=== PATIENT | female | born 2000 | race Caucasian/White ===

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

== ENCOUNTER → 2024-11-09 | Outpatient (REF) | payer BC ==
[2024-11-09 15:14] LABS: GC DNA AMPLIFICATION NEGATIVE (NEGATIVE)
== END ==
LOC: M LAB REF 12:23
PROVIDERS: ATTEND Internal Medicine
DX: Z72.51 High risk heterosexual behavior (principal)